=== PATIENT | female | born 1985 | race Hispanic/Latino ===

== ENCOUNTER 2020-07-11 10:08 | Emergency (ER) | payer SELFPAY ==
[2020-07-11 10:21] VITALS: BP 125/87; PULSE 81; RESP 16; TEMP 36.8; O2SAT 100
--- NOTE | 2020-07-11 10:30 | ED.GENADULT ---
HPI - General Adult General Chief complaint: Urogenital-Female Stated complaint: possible uti Time Seen by Provider: 07/11/20 10:30 Source: patient Mode of arrival: ambulatory Limitations: no limitations History of Present Illness HPI narrative: Patient is Beninese-speaking and has tooth cutter spur at bedside. 35-year-old female patient presents to the [facility] with complaints of urinary tract infection symptoms for the past 2 days. Patient states she has had some burning with urination urgency and frequency as well as some lower abdominal cramping. Patient did take a test about 3 days ago and it was positive but was not sure if it was reliable. Last menstrual period was June 06. Patient denies any fevers, body aches or chills. Denies any nausea, vomiting or diarrhea. Patient denies any low back pain. Patient has been twice before and does have 2 living children at home. Related Data Allergies Allergy/AdvReac Type Severity Reaction Status Date / Time No Known Allergies Allergy Verified 07/11/20 10:27 Review of Systems Review of Systems: Narrative: CONSTITUTIONAL: Denies fever, chills, or sweats. EYES: Denies visual changes, redness, or discharge. ENT: Denies rhinorrhea, congestion, sore throat, or otalgia. CARDIOVASCULAR: Denies chest pain, palpitations, or edema. RESPIRATORY: Denies cough or dyspnea. GASTROINTESTINAL: Positive lower abdominal cramping, denies nausea, vomiting, or diarrhea. GENITOURINARY: Denies dysuria or hematuria. Pain with urination, urgency and frequency x2 days SKIN: Denies rash or itching. MUSCULOSKELETAL: Denies back pain, joint pain, or myalgia. NEUROLOGIC: Denies headache, numbness, or weakness. PSYCHIATRIC: Denies anxiety or depression. PMFSH Social History Social History Gender identity (if verbalized by the patient): Female Comments At the time of my signature I agree with nursing past medical history, surgical, social, and family history. There is no relevant family history pertinent to the presenting complaint. Exam Narrative: Exam Narrative: GENERAL: Well-appearing, well-nourished, and in no acute distress. HEAD: Normocephalic, atraumatic. EYES: PERRLA and EOMI. ENT: Nares clear, no rhinorrhea or epistaxis. Mucous membranes moist. NECK: Supple. No lymphadenopathy CHEST: Clear to auscultation. No respiratory distress. HEART: Regular rate and rhythm. No murmur heard. Normal peripheral pulses. ABDOMEN: Soft, nontender, nondistended, normal active bowel sounds. No CVA tenderness on percussion EXTREMITIES: Normal range of motion. No edema. SKIN: Warm, dry, no rash. NEURO: No focal deficits. Alert and oriented x3. Course Vital Signs Vital signs: Vital Signs Temperature 36.8 C 07/11/20 10:21 Pulse Rate 81 07/11/20 10:21 Respiratory Rate 16 07/11/20 10:21 Blood Pressure 125/87 07/11/20 10:21 Pulse Oximetry 100 07/11/20 10:21 Temperature 36.8 C 07/11/20 10:21 Pulse Rate 81 07/11/20 10:21 Respiratory Rate 16 07/11/20 10:21 Blood Pressure 125/87 07/11/20 10:21 Pulse Oximetry 100 07/11/20 10:21 Vital signs reviewed Medical Decision Making Differential Diagnosis Differential Diagnosis: Differential diagnosis: Uncomplicated lower UTI, uncomplicated UTI, pyelonephritis Discussed with patient that her bedside test today is positive. Discussed with her that her urine dip does not show anything obvious however given the fact that she does have symptoms of pain with urination urgency and frequency and she is I will go ahead and treat her today with some antibiotics and send her urine off for culture. I will go ahead and give her an OB referral and I advised her to make an appointment with OB to be evaluated for her positive test. Discussed with patient she has worsening symptoms such as worsening abdominal pain, vaginal bleeding, or any other concerning sy
== END 2020-07-11 10:41 | disposition home or self-care (01) ==
PROVIDERS: Emergency Provider Nurse Practitioner Family; PCP Registered Nurse
DX: O99.891 Other specified diseases and conditions complicating pregnancy (principal); R30.0 Dysuria; Z3A.08 8 weeks gestation of pregnancy
CPT/HCPCS: 81003; 81025; 87086; 99203; G0463

== ENCOUNTER 2020-07-22 14:53 | Emergency (ER) | payer SELFPAY ==
--- NOTE | ~2020-07-22 | US_ITS ---
EXAMINATION: US OB <=14 wk fetus w TV EXAM DATE: 07/22/2020 15:53 INDICATION: Vaginal spotting, threatened . 1st trimester. TECHNIQUE: Pelvic obstetrical transabdominal sonogram was performed by a technologist. There are mu ltiple grayscale and Doppler images available for interpretation. There are no earlier studies of th is gestation for comparison. FINDINGS: Uterus measures 9.8 x 5.6 x 5.8 cm. There is intrauterine gestation sac in the lower uteri ne segment. pole with heart rate confirmed at 99 beats per minute. The 3 mm crown-rump length corresponds to estimated gestational age by ultrasound of 5 weeks 6 days, estimated date of confinem ent 03/18/2021. Yolk sac is identified. There is no sonographic evidence of subchorionic hemorrhage. Ovaries are morphologically normal. IMPRESSION: Live intrauterine gestation in the lower uterine segment. Reviewed, dictated and finalized at location [facility]
[2020-07-22 15:04] VITALS: BP 127/74; PULSE 92; RESP 16; TEMP 36.6; O2SAT 100
[2020-07-22 15:19] LABS: Basophils Percent Auto 0.3 % (0.2-1.2); Eosinophils Absolute Auto 0.1 K/mm3 (0-0.3); Eosinophils Percent Auto 0.8 % (0-4.4); Hematocrit 42.1 % (37.0-47.0); Hemoglobin 13.8 g/dL (12.0-15.0); Immature Granulocyte Absolute 0.03 K/mm3 (0.00-0.031); Immature Granulocyte Percent A 0.4 % (0-0.5); Lymphocytes Absolute Auto 1.56 K/mm3 (0.9-3.2); Lymphocytes Percent Auto 20.9 % (18.3-44.2); Mean Corpuscular HGB Conc 32.8 g/dl (32-36); Mean Corpuscular Hemoglobin 28.9 pg (26-34); Mean Corpuscular Volume 88.3 fl (80-100); Mean Platelet Volume 9.5 fl (7.4-10.4); Monocytes Absolute Auto 0.6 K/mm3 (0.1-0.6); Monocytes Percent Auto 7.5 % (2.6-8.5); Neutrophils Absolute Auto 5.2 K/mm3 (1.3-6.7); Neutrophils Percent Auto 70.1 % (45.5-73.1); Platelet Count Result 250 k/mm3 (150-375); Red Blood Count 4.77 M/mm3 (4.2-5.4); Red Cell Distribution Width 12.5 % (11.5-14.5); White Blood Count 7.5 K/mm3 (4.5-10.0)
--- NOTE | 2020-07-22 16:43 | ED.GENADULT ---
HPI - General Adult General Chief complaint: Vaginal Bleeding Stated complaint: /vaginal bleed/lmp 06/07 Time Seen by Provider: 07/22/20 16:28 Source: RN notes reviewed History of Present Illness HPI narrative: Patient presents to emergency department from home for vaginal bleeding. Patient states she is approximately 7-8 weeks she is G3, P2 states she began to have some vaginal bleeding with wiping starting yesterday. 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 did not take any medication this morning Related Data Allergies Allergy/AdvReac Type Severity Reaction Status Date / Time No Known Allergies Allergy Verified 07/22/20 15:09 Review of Systems Review of Systems: Narrative: Gen.: Denies fevers or chills ENT: Denies congestion Respiratory: Denies shortness of breath or cough CV: Denies chest pain or palpitations GI: Reports lower abdominal cramping, denies emesis or diarrhea see HPI Musculoskeletal: Denies back pain or muscle pain Neuro: Denies numbness, tingling, weakness or focal weakness Skin: Denies rash Except as documented, all other systems reviewed and negative PMFSH Past Medical History Medical History (Updated 07/22/20 @ 17:08 by Saud Sepulveda DO) Patient denies medical problems Social History Social History (Updated 07/22/20 @ 16:45 by Saud Sepulveda DO) Smoking status: Never smoker Gender identity (if verbalized by the patient): Female Exam Narrative: Exam Narrative: APPEARANCE: No acute distress, nontoxic, resting in bed EYES: EOMI HEENT: Normocephalic, atraumatic, OMM RESPIRATORY: No respiratory distress Clear to auscultation bilaterally with no rhonchi wheezing or rales. CARDIOVASCULAR: Regular rate and rhythm without murmurs rubs or gallops. ABDOMINAL: Soft, nontender, nondistended, no rebound or guarding : Normal external exam, moderate amount of dark maroon blood with clots in vaginal canal questionable products of conception removed cervix closed MUSCULOSKELETAl: Moves all extremities. No clubbing, cyanosis or edema. NEURO: Awake and alert. Following commands, speech normal, no focal deficits SKIN:: Warm, dry. No rashes lesions or abrasions PSYCHIATRIC: Normal affect/mood, Course Course Emergency Course: Discussed with Dr. [place] presentation work-up discussed ultrasound results and then my pelvic exam results likely the patient has passed some tissue. This time she agrees with plan for discharge she likes patient to follow-up in her office tomorrow at 11:30 AM Discussed with patient results of workup and diagnosis. Discussed need for follow-up with primary care, proper use of medication, and reasons to return to the emergency department. Patient understands and agrees to current treatment plan Vital Signs Vital signs: Vital Signs Temperature 97.8 F 07/22/20 15:04 Pulse Rate 92 07/22/20 15:04 Respiratory Rate 16 07/22/20 15:04 Blood Pressure 127/74 07/22/20 15:04 Pulse Oximetry 100 07/22/20 15:04 Temperature 97.8 F 07/22/20 15:04 Pulse Rate 92 07/22/20 15:04 Respiratory Rate 16 07/22/20 15:04 Blood Pressure 127/74 07/22/20 15:04 Pulse Oximetry 100 07/22/20 15:04 Medical Decision Making Vital Signs Vital Signs: Vital Signs Temperature 97.8 F 07/22/20 15:04 Pulse Rate 92 07/22/20 15:04 Respiratory Rate 16 07/22/20 15:04 Blood Pressure 127/74 07/22/20 15:04 Pulse Oximetry 100 07/22/20 15:04 Temperature 97.8 F 07/22/20 15:04 Pulse Rate 92 07/22/20 15:04 Respiratory Rate 16 07/22/20 15:04 Blood Pressure 127/74 07/22/20 15:04 Pulse Oximetry 100 07/22/20 15:04 Lab Data Result diagrams: 07/22/20 15:11 Labs: Lab Results 07/22/20 07/22/20 07/22/20 Range/Units 15:11 15:11 15:11 WBC 7.5 (4.5-10.0) K/mm3 R
[2020-07-22] MEDS: ACETAMINOPHEN 500 MG TABLET 1000 MG PO (16:56)
[2020-07-22 17:45] VITALS: BP 130/95; PULSE 79; RESP 14; O2SAT 96
== END 2020-07-22 17:53 | disposition home or self-care (01) ==
PROVIDERS: Emergency Provider Emergency Medicine; PCP Registered Nurse
DX: O20.0 Threatened abortion (principal); Z3A.01 Less than 8 weeks gestation of pregnancy
CPT/HCPCS: 36415; 76801; 76817; 84702; 85025; 85461; 88305; 99284; A9270

== ENCOUNTER 2020-07-23 12:41 | Outpatient (CLI) | payer SELFPAY | END 2020-07-23 12:42 | disposition home or self-care (01) | LOC: ANHLAB 12:43 | PROVIDERS: PCP Registered Nurse; Visit Provider Student in an Organized Health Care Education/Training Program | DX: O20.0 Threatened abortion (principal); Z3A.00 Weeks of gestation of pregnancy not specified | CPT/HCPCS: 36415; 84702 ==

== ENCOUNTER 2023-03-29 12:43 | Emergency (ER) | payer OTHER, SELFPAY ==
[2023-03-29 12:58] VITALS: BP 141/96; PULSE 109; RESP 14; TEMP 37; O2SAT 100
--- NOTE | 2023-03-29 13:16 | ED.HA ---
HPI - Headache General Chief Complaint: Wound/Laceration Stated Complaint: Headache Time Seen by Provider: 03/29/23 13:16 Source: patient Mode of arrival: ambulatory Limitations: no limitations History of Present Illness HPI Narrative: 37 y/o female presented for c/o headaches for a few days, and reports a nodule increasing in size to the left scalp (frontal lobe) over the past 4 weeks. States it has been the same size for a few days. Denies injury/trauma to the head. The nodule is not tender. Headache pain is described as all over, not specific to nodule. Taking ibuprofen for symptoms. Denies other complaints or concerns. Related Data Home Medications Medication Instructions Recorded Confirmed atorvastatin 10 mg tablet mg 03/29/23 ibuprofen 400 mg tablet mg 03/29/23 Allergies Allergy/AdvReac Type Severity Reaction Status Date / Time No Known Allergies Allergy Verified 03/29/23 13:01 Review of Systems Review of Systems: CONSTITUTIONAL: Denies body aches, fever, chills, or sweats. EYES: Denies visual changes, redness, or discharge. ENT: Denies rhinorrhea, congestion, sore throat, or otalgia. CARDIOVASCULAR: Denies chest pain, palpitations, or edema. RESPIRATORY: Denies cough or dyspnea. GASTROINTESTINAL: Denies abdominal pain, nausea, vomiting, or diarrhea. GENITOURINARY: Denies dysuria or hematuria. SKIN: Reports scalp nodule Denies rash, itching, or wounds. MUSCULOSKELETAL: Denies back pain, joint pain, or myalgia. NEUROLOGIC: reports headache, scalp nodule Denies numbness, tingling, or weakness. All systems reviewed & are unremarkable except as noted in HPI and below PMFSH Past Medical History Medical History History of vaginal delivery x 2 Social History Social History Smoking status: Never smoker Alcohol intake: never Substance use: never Gender identity (if verbalized by the patient): Female Comments At time of signature, I have reviewed and agree with nursing past medical, surgical, social and family history unless otherwise noted. Please see nursing chart for further information. There is no relevant family history pertinent to the presenting complaint Exam Narrative: GENERAL: Well-appearing, and in no acute distress. HEAD: Left anterior frontal scalp subcutaneous nodule, approx 5cm diameter raised approx 3cm; nontender, firm, no erythema induration fluctuance or drainage. atraumatic. EYES: EOMI. No redness or drainage. Conjunctivae normal. ENT: Mucous membranes pink and moist. No rhinorrhea. TMs normal bilaterally. Throat normal. Uvula midline. NECK: Normal AROM. Supple. No lymphadenopathy. CHEST: Clear to auscultation. HEART: Regular rate and rhythm. No murmur appreciated. Normal peripheral pulses. ABDOMEN: Soft, nontender, nondistended, normal active bowel sounds. EXTREMITIES: Normal range of motion. No edema. SKIN: Warm, diaphoretic. Capillary refill normal. Normal skin turgor. NEURO: No focal deficits. Alert and oriented x3. Gait steady. PSYCH: Normal affect. Course Course Emergency Course: Patient is aware of diagnosis, understands and agrees to treatment plan. Anticipatory guidance given. Patient agrees to follow-up as directed and is aware of reasons to seek care at the emergency department. Portions of this record may have been created with voice recognition software Level of Care: Express Care Visit Vital Signs Vital signs: Vital Signs Temperature 98.6 F 03/29/23 12:58 Pulse Rate 109 H 03/29/23 12:58 Respiratory Rate 14 03/29/23 12:58 Blood Pressure 141/96 H 03/29/23 12:58 Pulse Oximetry 100 03/29/23 12:58 Oxygen Delivery Room Air 03/29/23 12:58 Temperature 98.6 F 03/29/23 12:58 Pulse Rate 109 H 03/29/23 12:58 Respiratory Rate 14 03/29/23 12:58 Blood Pressure 141/96 H 03/29/23 12:58 Pulse Oximetry 100
[2023-03-29 13:47] LABS: Glucose Point of Care 104 mg/dl (65-105)
== END 2023-03-29 13:46 | disposition short-term general hospital (02) ==
PROVIDERS: Emergency Provider Nurse Practitioner Family; PCP Registered Nurse
DX: R22.0 Localized swelling, mass and lump, head (principal); Z79.899 Other long term (current) drug therapy; Z79.1 Long term (current) use of non-steroidal anti-inflammatories (NSAID)
CPT/HCPCS: 82948; 99213; G0463

== ENCOUNTER 2023-04-18 09:16 | Emergency (ER) | payer OTHER, SELFPAY ==
--- NOTE | 2023-04-18 09:19 | ED.WOUNDLAC ---
HPI - Wound/Laceration General Chief Complaint: Skin/Abscess/Foreign Body Stated Complaint: Stitch Removal Time Seen by Provider: 04/18/23 09:17 Source: patient Mode of arrival: ambulatory Limitations: no limitations History of Present Illness HPI narrative: Patient is a 37-year-old female presents with wound to left thigh that needs to have sutures removed. Suture was placed by a banking services officer 2 weeks ago for a cancerous lesion removal. Patient unsure what kind of cancer she has been diagnosed with. Denies any drainage from wound. Patient has been trying to contact clinic or with no answer. Related Data Home Medications Medication Instructions Recorded Confirmed atorvastatin 10 mg tablet mg 03/29/23 cephalexin 500 mg capsule mg 04/18/23 Allergies Allergy/AdvReac Type Severity Reaction Status Date / Time No Known Allergies Allergy Verified 04/18/23 09:46 Review of Systems Review of Systems: All systems reviewed & are unremarkable except as noted in HPI and below Constitutional: Constitutional: Denies body ache(s), Denies chills, Denies fatigue, Denies fever(s), Denies headache(s), Denies malaise and Denies weakness Eyes: Eyes: Denies blurry vision, Denies irritation and Denies loss of vision ENT: Denies otalgia, Denies headache(s), Denies nasal discharge, Denies sinus pain and Denies sore throat Cardiovascular: Cardiovascular: Denies chest pain, Denies irregular heart rhythm and Denies dyspnea Respiratory: Respiratory: Denies dyspnea Gastrointestinal: Gastrointestinal: Denies abdominal pain, Denies melena, Denies hematochezia, Denies diarrhea, Denies nausea and Denies vomiting Musculoskeletal: Musculoskeletal: Denies back pain, Denies myalgias and Denies arthralgias Integumentary/Breasts: Skin/Breast: Denies pruritus, Denies rash and Reports wounds Neurologic: Denies headache(s), Denies loss of vision and Denies weakness Psychiatric: Psychiatric: Reports no additional psychiatric complaints Endocrine: Endocrine: Denies fatigue PMFSH Past Medical History Medical History History of vaginal delivery x 2 Social History Social History Smoking status: Never smoker Alcohol intake: never Substance use: never Gender identity (if verbalized by the patient): Female Comments At time of signature, agree with nursing past medical, surgical, social and family history. There is no relevant family history pertinent to the presenting complaint. Exam Const: General: cooperative, healthy appearing, comfortable, no acute distress and well nourished Nutritional Appearance: well nourished Orientation/consciousness: patient oriented x3 Limitations: no limitations HENMT: Head: normal to inspection, normocephalic and atraumatic Ears: hearing grossly normal bilaterally and external ears normal Face/Nose/Sinus: Normal external nose present, normal facial exam and face symmetric Face and sinus: normal facial exam and face symmetric Mouth: Yes lip normal Eyes: General: appearance normal, both eyes and all related structures Alignment and Position: alignment normal and position normal Periorbital: periorbital findings normal Eyelids: eyelids normal Pupils: Equal, round and reactive pupils present EOM: EOMs intact bilaterally Neck: Neck: normal visual inspection, full ROM and supple Chest: Chest palpation & inspection: normal inspection of the chest Resp: Effort & Inspection: normal respiratory effort and able to speak in complete sentences Auscultation: clear to auscultation bilaterally Cardio: Rate: regular rate Rhythm: regular rhythm Heart sounds: S1 normal heart sound present and S2 normal heart sound present GI: Inspection: normal to inspection Skin: General skin exam: normal color and no rashes or lesions noted Neuro: General: patient oriented x3 and moves all extremities Cranial
[2023-04-18 09:28] VITALS: BP 133/89; PULSE 100; RESP 16; TEMP 37.2; O2SAT 99
== END 2023-04-18 10:04 | disposition home or self-care (01) ==
PROVIDERS: Emergency Provider Nurse Practitioner Family; PCP Physician Assistant
DX: Z48.02 Encounter for removal of sutures (principal); Z85.828 Personal history of other malignant neoplasm of skin
CPT/HCPCS: 99211; G0463